=== PATIENT | male | born 1990 | race Caucasian/White ===

== ENCOUNTER → 2017-06-24 | Outpatient (CLI) | payer OTHER ==
[~2017-06-24] MED LIST: ACET-1311 PO; ADVIN10/60 INH; ALBUAER19 INH; DIPH-416 PO; FOLI1TAB8 PO; METH2.5T PO; MULT-506 PO; OMEG10007 PO
--- NOTE | 2017-06-24 12:25 | DIAGNOSTIC IMAGING REPORT ---
NASAL BONES MIN 3 VIEWS CLINICAL HISTORY: Nasal injury. COMPARISON STUDY: No previous studies for comparison. FINDINGS: No displaced nasal bone fracture is identified. Sensitivity for detection of nondisplaced nasal bone fractures is diminished given radiographic technique. There may be right sided nasal soft tissue swelling. IMPRESSION: No displaced nasal bone fracture identified. Electronically signed by: Gerardo Fitzptarick M.D. 06/24/2017 12:24 PM Dictated Date/Time: 06/24/2017 12:22 PM
== END | disposition home or self-care (01) ==
LOC: C.RAD1850 11:48
PROVIDERS: ATTEND Internal Medicine
DX: S09.92XA Unspecified injury of nose, initial encounter (principal); X58.XXXA Exposure to other specified factors, initial encounter